=== PATIENT | male | born 1965 | race Caucasian/White ===

== ENCOUNTER → 2017-05-09 | Outpatient (CLI) | payer OTHER ==
[~2017-05-09] MED LIST: ASPIRIN E.C. 8181 MG PO; NO HOME MEDICATIONS
== END ==
LOC: COL.PUL 08:00
DX: J45.998 Other asthma (principal)
CPT/HCPCS: J7674

== ENCOUNTER → 2017-06-11 | Outpatient (CLI) | payer BC ==
[2017-06-12 01:00] LABS: FOLATE (FOLIC ACID) 12.3 ng/mL (7.0-31.4)
== END ==
LOC: COL.LAB 09:25
PROVIDERS: Psychiatry & Neurology Neurology
DX: G31.84 Mild cognitive impairment of uncertain or unknown etiology (principal)

== ENCOUNTER 2018-06-06 05:56 | Day surgery (SDC) | payer BC ==
[~2018-06-06] VITALS: Ht 177.8 cm; Wt 118.5 kg
[2018-06-06] MEDS ORDERED: MOBIC15 MG PO (06:44)
[2018-06-06] MEDS ORDERED: PRILOSEC 20MG20 MG PO (06:44)
[2018-06-06] MEDS ORDERED: PROAIR HFA0.09 MG/AC IH (06:45)
[2018-06-06] MEDS ORDERED: 00186-0372-20 IH (06:45)
[2018-06-06] MEDS ORDERED: ZYRTEC 10MG10 MG PO (06:45)
[2018-06-06 06:46] VITALS: BP 121/83; PULSE 77; TEMP 98
[2018-06-06 08:05] VITALS: BP 124/91; PULSE 90; TEMP 98.2
--- NOTE | 2018-06-06 08:05 | NUR ---
Pt returns from endo procedure. Pt ambulates from cart to recliner with RN assist. Monitors on and alarms set. Call light within reach. Report received from JOLEEN Enriquez. Pt alert and oriented. Mom brought to room. Pt requests juice and muffin. Pt denies pain or nausea.
[2018-06-06 08:15] VITALS: BP 141/82; PULSE 85
--- NOTE | 2018-06-06 08:15 | NUR ---
Pt taking food and drink well.
[2018-06-06 08:30] VITALS: BP 123/85; PULSE 83
--- NOTE | 2018-06-06 08:43 | NUR ---
Discharge instructions given to patient and mom. All questions answered to their satisfaction. Handed to pt are a thank you card, discharge instructions, and diagnosis information.
[2018-06-06 08:45] VITALS: BP 134/74; PULSE 78
--- NOTE | 2018-06-06 08:55 | NUR ---
Pt transferred out of hospital via wheelchair and JOLEEN Matta, to private vehicle driven by mom.
[2018-06-06 09:34] VITALS: BP 129/82; PULSE 72
== END 2018-06-06 08:55 | disposition home or self-care (01) ==
LOC: SDCO 05:56
DX: Z12.11 Encounter for screening for malignant neoplasm of colon (principal); K63.5 Polyp of colon; K57.30 Diverticulosis of large intestine without perforation or abscess without bleeding
CPT/HCPCS: J2250; J3010; J7030

== ENCOUNTER 2018-07-17 17:21 | Emergency (ER) | payer BC ==
[~2018-07-17] VITALS: Ht 177.8 cm; Wt 113.6 kg
[~2018-07-17 17:21] MED LIST changes: +00186-0372-20 IH; +MOBIC15 MG PO; +PRILOSEC 20MG20 MG PO; +PROAIR HFA0.09 MG/AC IH; +ZYRTEC 10MG10 MG PO
[2018-07-17 17:31] VITALS: TEMP 98.4
[2018-07-17 18:04] LABS: COLLECTION METHOD CLEAN CATCH
[2018-07-17 18:14] LABS: MUCOUS Present /lpf; PH 6 (5-8); SQUAMOUS EPITHELIAL None Seen /hpf; URINE APPEARANCE Clear; URINE BACTERIA None Seen /hpf; URINE BILIRUBIN Negative (NEGATIVE); URINE BLOOD Negative (NEGATIVE); URINE COLOR Yellow; URINE GLUCOSE Negative (NEGATIVE); URINE KETONE Negative (NEGATIVE); URINE LEUKOCYTE ESTERASE Negative (NEGATIVE); URINE NITRATE Negative (NEGATIVE); URINE PROTEIN(semi-quant) Negative (NEGATIVE); URINE RBC 0-2 /hpf; URINE UROBILINOGEN Negative (NEGATIVE)
[2018-07-17 18:15] LABS: BASO % 0.3 % (0.0-2.0); EOS # 0.3 (0.0-0.7); GRAN % 67.5 % (42.2-75.2); HEMATOCRIT 45.1 % (42.0-52.0); HEMOGLOBIN 15.3 g/dl (13.5-18.0); LYMPH # 1.9 (1.2-3.4); LYMPH % 21.8 % (20.0-51.0); MEAN CELL VOLUME 86 fl (80.0-100.0); MEAN CORPUSCULAR HEMOGLOBIN 29 pg (27.0-31.0); MEAN CORPUSCULAR HGB CONC 34 g/dl (33.0-37.0); MEAN PLATELET VOLUME 9.9 fl (7.4-10.4); MONO # 0.6 (0.1-0.6); MONO % 7.1 % (1.7-9.3); PLATELET COUNT 217 K/mm3 (130-400); RED BLOOD COUNT 5.25 M/mm3 (4.20-5.60); REDCELL DISTRIBUTION WIDTH-CV 12.6 % (11.5-14.5)
[2018-07-17 18:45] LABS: ALANINE AMINOTRANSFERASE 68 U/L (21-72); ALBUMIN 3.9 gm/dL (3.5-5.0); ALKALINE PHOSPHATASE 87 U/L (50-136); ANION GAP 9 mmol/L (7-16); AST,SGOT 63 U/L (15-37); BILIRUBIN,TOTAL 0.5 mg/dL (0.0-1.0); BLOOD UREA NITROGEN 11 mg/dL (9-20); C-REACTIVE PROTEIN 0.8 mg/dL (0.0-0.9); CALCIUM 8.6 mg/dL (8.4-10.2); CARBON DIOXIDE 27 mmol/L (22-30); CHLORIDE 103 mmol/L (98-107); GLUCOSE 97 mg/dL (74-106); LIPASE 146 U/L (23-300); SODIUM 138 mmol/L (137-145); TOTAL PROTEIN 7.3 gm/dL (6.4-8.2)
[2018-07-17 19:00] LABS: TROPONIN-I < 0.012 ng/mL (0.000-0.035)
[2018-07-17 20:16] VITALS: BP 143/94; PULSE 74
== END 2018-07-17 20:22 | disposition home or self-care (01) ==
LOC: COL.ER 17:21
PROVIDERS: Emergency Medicine
DX: R10.31 Right lower quadrant pain (principal); I10 Essential (primary) hypertension; K21.9 Gastro-esophageal reflux disease without esophagitis; Z87.442 Personal history of urinary calculi
CPT/HCPCS: J1170; J2405; J7030; Q9967

== ENCOUNTER 2019-06-29 08:01 | Outpatient (RCR) | payer BC | END 2019-09-27 | disposition still patient (30) | LOC: WSC | DX: Z47.89 Encounter for other orthopedic aftercare (principal); Z98.890 Other specified postprocedural states ==

== ENCOUNTER 2019-08-24 11:00 | Outpatient (RCR) | payer BC | END 2019-10-11 | disposition home or self-care (01) | LOC: WSC | DX: Z96.611 Presence of right artificial shoulder joint (principal) | CPT/HCPCS: G0283-GP ==

== ENCOUNTER 2022-10-10 10:29 | Emergency (ER) | payer BC ==
[~2022-10-10] VITALS: Ht 177.8 cm; Wt 118.2 kg
[2022-10-10 10:55] VITALS: TEMP 97.7
[2022-10-10 12:17] LABS: ALANINE AMINOTRANSFERASE 108 U/L (0-55); ALBUMIN 3.6 gm/dL (3.5-5.0); ALKALINE PHOSPHATASE 69 U/L (40-150); ANION GAP 12 mmol/L (7-16); AST,SGOT 58 U/L (5-34); BILIRUBIN,TOTAL 0.6 mg/dL (0.2-1.2); BLOOD UREA NITROGEN 12 mg/dL (8-26); CALCIUM 9.4 mg/dL (8.4-10.2); CARBON DIOXIDE 21 mmol/L (22-29); CHLORIDE 106 mmol/L (98-107); CREATININE, serum 1.23 mg/dL (0.72-1.25); GLUCOSE 140 mg/dL (70-99); POTASSIUM 3.6 mmol/L (3.5-4.5); SODIUM 139 mmol/L (136-145); TOTAL PROTEIN 7.2 gm/dL (6.2-8.1); TROPONIN-I < 0.010 ng/mL (0.00-0.033)
[2022-10-10 12:21] LABS: BASO % 0.5 % (0.0-2.0); EOS # 0.2 K/mm3 (0.0-0.7); EOS % 1.8 % (0.0-4.0); GRAN # 6.4 K/mm3 (1.4-6.5); GRAN % 73.7 % (42.2-75.2); HEMOGLOBIN 16.2 g/dl (13.5-18.0); LYMPH # 1.4 K/mm3 (1.2-3.4); LYMPH % 16.4 % (20.0-51.0); MEAN CELL VOLUME 86 fl (80.0-100.0); MEAN CORPUSCULAR HEMOGLOBIN 30 pg (27-31); MEAN CORPUSCULAR HGB CONC 35 g/dl (33.0-37.0); MEAN PLATELET VOLUME 10.1 fl (7.4-10.4); MONO # 0.6 K/mm3 (0.1-0.6); MONO % 7.3 % (1.7-9.3); PLATELET COUNT 228 K/mm3 (130-400)
[2022-10-10 13:39] VITALS: BP 128/94; PULSE 102
== END 2022-10-10 13:39 | disposition home or self-care (01) ==
LOC: COL.ER 10:55
PROVIDERS: Physician Assistant
DX: R55 Syncope and collapse (principal); J98.01 Acute bronchospasm; E66.9 Obesity, unspecified
CPT/HCPCS: J1100; J7030

== ENCOUNTER → 2024-03-05 | Outpatient (CLI) | payer OTHER ==
[~2024-03-05] MED LIST changes: +Albuterol 0.083% Neb Soln 2.5 MG/3 ML UD IH ONE; +Methacholine Vial A (Clear Label Base-Cntrl) IH ONE; +Methacholine Vial B (Red Label) 0.0625 MG/ML 3 ML VIAL.NEB IH ONE; +Methacholine Vial C (Orange Label) 0.25 MG/ML 3 ML VIAL.NEB IH ONE; +Methacholine Vial D (Yellow Label) 1 MG/ML 3 ML VIAL.NEB IH ONE; +Methacholine Vial E (Green Label) 4 MG/ML 3 ML VIAL.NEB IH ONE; +Methacholine Vial F (Blue Label) 16 MG/ML 3 ML VIAL.NEB IH ONE
== END ==
LOC: COL.CARD 11:58
DX: R05.9 Cough, unspecified (principal)
CPT/HCPCS: J7674